=== PATIENT | male | born 1945 | race Two or more races ===

== ENCOUNTER → 2024-04-05 | Outpatient (CLI) | payer OTHER, SELFPAY ==
[2024-04-05 14:27] LABS: Prostate Specific Antigen 0.78 ng/mL (0-4.00)
== END | disposition home or self-care (01) ==
PROVIDERS: PCP Nurse Practitioner Family; Referring Provider Urology; Visit Provider Urology
DX: R97.21 Rising PSA following treatment for malignant neoplasm of prostate (principal)
CPT/HCPCS: 36415; 84153

== ENCOUNTER → 2024-07-17 | Outpatient (CLI) | payer OTHER, SELFPAY ==
--- NOTE | 2024-07-17 | XR_ITS ---
Examination: CT chest, without intravenous contrast. Sagittal and coronal 2-D reconstructions. Exam date and time: July 17, 2024 1144 hours INDICATIONS: Smoking history years, heart surgery September 2023 coughing CTDI:vol (mGy) 13.3 DLP: (mGycm) 542 Technique: Multiple 3.0 mm axial sections of the chest to been obtained. Bone and lung density settings are obtained. Sagittal and coronal 2-D reconstructions have been obtained. Low dose protocols were performed. One or more of the following dose reduction techniques were used; automated exposure control, adjustment of the mA and/or KV according to patient size, use of iterative reconstruction technique. Findings: Thoracic aortic calcification no aneurysmal dilatation Pulmonary artery segments are not enlarged No paratracheal tracheobronchial or bronchopulmonary adenopathy Moderate left pleural effusion No pneumonia or pulmonary edema No visualized liver or splenic lesions Gallstones Moderate renal parenchymal scar formation Moderate osteopenia IMPRESSION: No mediastinal lymphadenopathy No pulmonary nodules Moderate left pleural effusion Cholelithiasis
== END | disposition home or self-care (01) ==
PROVIDERS: Referring Provider Nurse Practitioner Psychiatric/Mental Health; Visit Provider Nurse Practitioner Psychiatric/Mental Health
DX: Z12.2 Encounter for screening for malignant neoplasm of respiratory organs (principal); J90 Pleural effusion, not elsewhere classified; K80.20 Calculus of gallbladder without cholecystitis without obstruction
CPT/HCPCS: 71271

== ENCOUNTER 2024-11-08 11:49 | Emergency (ER) | payer OTHER, SELFPAY ==
[2024-11-08 12:31] VITALS: BMI 27.5
[2024-11-08 12:34] VITALS: BP 128/51; PULSE 69; RESP 18; TEMP 37.9; O2SAT 97
--- NOTE | 2024-11-08 12:40 | EDNOTE_ITS ---
<Statement entered by Meg Shea MD - 11/09/24 23:30> As co-signing physician, I was present and available for consult prn. I concur with the plan and care as documented by the midlevel provider. ED Recheck Abnl Lab Rx-RME/HPI General Chief Complaint: Recheck/Abnormal Lab/Rx Stated Complaint: Dizzy, Hemoglobin 7.0 Time Seen by Provider: 11/08/24 11:55 Arrival date/time: 11/08/24 11:49 RME / HPI RME / HPI narrative: 79-year-old male patient with significant history of hypertension CAD, came in for evaluation regarding hemoglobin of 7.0. Patient had a blood drawn done a few days ago and was advised to come to the emergency room for hemoglobin of 7.0. Patient complained of dizziness severity mild. Denies any vomiting blood denies any blood in the stool denies any hematuria denies any black-colored stool patient is ambulatory. Related Data Home Medications ?Medication ?Instructions ?Recorded ?Confirmed aspirin 81 mg tablet,delayed 81 mg PO QDAY 12/11/18 release cholecalciferol (vitamin D3) 50 2,000 unit PO QDAY 01/09/19 mcg (2,000 unit) capsule lisinopril 20 mg tablet 20 mg PO BID 12/11/18 metformin 500 mg tablet 500 mg PO BID 12/11/1801/09 simvastatin 40 mg tablet 40 mg PO QHS 12/11/18 Allergies Allergy/AdvReac Type Severity Reaction Status Date / Time No Known Allergies Allergy Verified 11/08/24 11:54 Review of Systems Review of Systems Narrative Review of Systems: Review of system reviewed and within normal limits except mentioned in HPI ED Exam Narrative Physical exam: VITAL SIGNS: Reviewed. GENERAL APPEARANCE: Alert and interactive, follows commands, no acute distress, HEAD AND FACE: Non-traumatic. ENT: PERRL, pale conjunctiva, eyelid no trauma, Mucous membrane moist. NECK: Supple, nontender, no nuchal rigidity. CHEST: No tenderness, no crepitus, no paradoxical movement, no retractions. LUNGS: Clear, well ventilated, symmetric, no rales, no wheezing, no ronchi, no stridor, good breath sounds bilaterally. HEART: Regular rate, regular rhythm, no murmur, no gallops. ABDOMEN: Soft, positive bowel sounds, nondistended, no guarding, nontender, no rebound, no masses, RECTAL: Deferred. GENITAL: Deferred. NEUROLOGICAL: Gross motor function intact sensory function intact, Appropriate for age. MUSCULOSKELETAL: low back nontender, full range of motion. EXTREMITIES: Nontender, full range of motion. SKIN: Color pale, dry, no rash, no lacerations, no abrasions, no contusions. LYMPHATICS: Deferred. Course Quality Measures none Orders Category Date Time Status Transfuse,blood/blood products ONCE Care 11/08/24 13:50 Completed CBC [CBC] Stat Lab 11/08/24 12:48 Completed CMP [Comprehensive Metabolic Panel] Stat Lab 11/08/24 12:48 Completed Type and Screen Stat Lab 11/08/24 12:48 Completed prbc [Red Blood Cells] Stat Lab 11/08/24 12:48 Completed Vital Signs Vital signs: Vital Signs Temperature 100.3 F 11/08/24 12:34 Pulse Rate 69 11/08/24 12:34 Respiratory Rate 18 11/08/24 12:34 Blood Pressure 128/51 L 11/08/24 12:34 Pulse Oximetry (%) 97 11/08/24 12:34 Oxygen Delivery Method Room Air 11/08/24 12:34 Recheck / Abnormal Lab / Rx MDM Narrative MDM Narrative:: 79-year-old male patient with significant history of hypertension CAD, came in for evaluation regarding hemoglobin of 7.0. Patient had a blood drawn done a few days ago and was advised to come to the emergency room for hemoglobin of 7.0. Patient complained of dizziness severity mild. Denies any vomiting blood denies any blood in the stool denies any hematuria denies any black-colored stool patient is ambulatory. Patient hemoglobin was noted to be 7.2, hematocrit of 22.4. Rest of the labs unremarkable. Patient received 2 units of packed RBC with no complication note d. Patient data External records reviewed:: None Clinical information provided by:: patient Social determinants that could affect healthcare access:: none Patient has the following chronic illnesses:: None How is presenting disease/condition affected by chronic disease/condition?: no chronic disease Evaluation data The following diagnostics were reviewed and interpreted by me:: lab results Lab and/or radiology exams considered but not ordered:: None Interpretation Summary: See results MDM Medications / Prescriptions Medications or Prescriptions considered but not ordered:: None Medication administrations:: 2 units packed RBC Consultations Consultation(s) initiated? (list below): No Diagnosis Recheck Differential Diagnosis: other (Anemia, iron deficiency anemia) Most likely diagnosis given after review of the tests above:: Anemia requiring blood transfusion Admission Indicated Admission indicated?: not indicated Admission Request Was there a request for admission?: No Disposition Plan Disposition Plan: Discharge Discharge Attestation Discharge Attestation: The patient was given an opportunity to ask questions and understood the discharge instructions. Discharge instructions specifically effects, indications for sooner follow up or return to the emergency department, and the expected course of current diagnosis. Patient condition: Stable Discharge Plan Plan Patient Disposition: HOME (Self Care) Discharge Disposition comment: stable Prescriptions/Referrals Prescriptions/Med Rec: No Action metformin 500 mg tablet 500 mg PO BID lisinopril 20 mg tablet 20 mg PO BID cholecalciferol (vitamin D3) 2,000 unit capsule 2,000 unit PO QDAY simvastatin 40 mg tablet 40 mg PO QHS aspirin 81 mg tablet,delayed release (DR/EC) 81 mg PO QDAY Referrals: No Primary/Family,Physician [Primary Care Provider] - In 1 week Problem List Clinical Impression: Anemia Patient/Caregiver Discharge Instructions Discharge Activity: activity as tolerated Education Materials: Anemia Additional Instructions: Thank you for the opportunity for serving you today. You are stable for discharged . You are advised to: Follow-up with your PCP in 1 to 2 days Return to ED for worsening of symptoms Print Language: Icelandic Stand Alone Forms: Sayda Award Info., Patient Portal Info Letter MARÍA/BAL Supervising Physician GERSON Supervising Physician: MD Monse
[2024-11-08 13:05] LABS: Basophils % (Auto) 0 % (0-2.5); Eosinophils # (Auto) 0.2 Thou/mm3 (0.0-0.5); Eosinophils % (Auto) 2 % (0-10); Hematocrit 22.4 % (41.0-53.0); Immature Granulocytes % (Auto) 1 % (0-0); Immature Granulocytes Auto 0.04 Thou/mm3 (0.00-0.00); Lymphocytes # (Auto) 0.9 Thou/mm3 (1.0-4.8); Lymphocytes % (Auto) 11 % (10-50); Mean Corpuscular HGB Conc 32.1 g/dl (31.0-37.0); Mean Corpuscular Volume 100 fL (80-100); Monocytes # (Auto) 0.8 Thou/mm3 (0.0-0.8); Monocytes % (Auto) 9 % (0-12); Neutrophils # (Auto) 6.4 Thou/mm3 (1.8-7.7); Neutrophils % (Auto) 78 % (37-80); Nucleated Red Blood Cell % 0 /100 WBC (0); Platelet Count 203 Thou/mm3 (140-440); RDW Standard Deviation 52.6 fL (35.1-43.9); Red Blood Count 2.25 Miln/mm3 (4.50-5.90); White Blood Count 8.3 Thou/mm3 (3.8-10.6)
[2024-11-08 13:20] LABS: Hemoglobin 7.2 g/dL (13.5-16.0)
[2024-11-08 13:25] LABS: Alanine Aminotransferase 12 U/L (10-49); Albumin, Serum 4.1 gm/dL (3.4-4.8); Albumin/Globulin Ratio 1.7 (1.2-2.2); Alkaline Phosphatase 86 U/L (46-116); Anion Gap 9 (7-16); Aspartate Amino Transferase 16 U/L (0-34); BUN/Creatinine Ratio 25 Ratio (12-20); Bilirubin,Total 0.3 mg/dL (0.3-1.2); Blood Urea Nitrogen 43 mg/dL (9-23); Carbon Dioxide 22.8 mMol/L (20.0-31.0); Chloride 111 mMol/L (98-107); Creatinine (Component) 1.7 mg/dL (0.6-1.3); Estimated Creatinine Clearance 38.1 mL/min (>60); Globulin 2.4 gm/dL (2.3-3.5); Glucose 145 mg/dL (74-106); Osmolality,Calculated 298 (275-295); Potassium 4.5 mMol/L (3.4-5.1); Sodium 143 mMol/L (136-145); Total Protein 6.5 gm/dL (5.7-8.2); eGFR 41 See Note
--- NOTE | 2024-11-08 19:36 | PC.NURSE ---
[facility] contacted for update on blood ordered since noon. They stated they forgot to draw the second type and screen.
[2024-11-08 20:41] VITALS: BP 158/64; PULSE 72; RESP 19; TEMP 36.6; O2SAT 98
[2024-11-08 20:47] VITALS: BP 158/64; PULSE 67; RESP 18; TEMP 36.6; O2SAT 98
[2024-11-08 21:03] VITALS: BP 123/51; PULSE 63; RESP 13; TEMP 36.4
[2024-11-08 21:18] VITALS: BP 119/52; PULSE 63; RESP 18; TEMP 36.6; O2SAT 99
[2024-11-08 23:05] VITALS: BP 137/78; PULSE 56; RESP 15; TEMP 36.5; O2SAT 96
[2024-11-09 00:15] VITALS: BP 129/66; PULSE 87; RESP 18; TEMP 36.7; O2SAT 96
[2024-11-09 00:27] VITALS: BP 129/58; PULSE 61; RESP 18; TEMP 36.7; O2SAT 98
[2024-11-09 00:42] VITALS: BP 122/56; PULSE 59; RESP 18; TEMP 36.7; O2SAT 97
[2024-11-09 00:57] VITALS: BP 117/62; PULSE 59; RESP 18; TEMP 37.1; O2SAT 59
[2024-11-09 02:20] VITALS: BP 134/49; PULSE 60; RESP 18; TEMP 36.7; O2SAT 96
[2024-11-09 03:22] VITALS: BP 131/65; PULSE 60; RESP 18; TEMP 36.7; O2SAT 99
== END 2024-11-09 03:25 | disposition home or self-care (01) ==
PROVIDERS: Nurse Practitioner Family; Emergency Provider Emergency Medicine
DX: D64.9 Anemia, unspecified (principal); I10 Essential (primary) hypertension; I25.10 Atherosclerotic heart disease of native coronary artery without angina pectoris
CPT/HCPCS: 36415; 36430; 80053; 85025; 86850; 86900; 86901; 86923; 99285; P9016